=== PATIENT | female | born 1985 | race African-American/Black ===

== ENCOUNTER 2018-04-14 22:27 | Emergency (ER) | payer MEDICAID ==
[~2018-04-14] VITALS: Ht 165.1 cm; Wt 106.0 kg
[~2018-04-14 22:27] MED LIST: CIPRO500 MG OR; CIPRO500 MG PO; LORTAB5 PO; NAPROSYN500 MG PO; NO MEDS; PERCOCET 5/325M1 TAB OR; PRILOSEC OTC20 MG OR; ULTRAM50 M1 PO; ULTRAM50 MG OR; ZOFRAN4 M1 OR
[2018-04-14] MEDS ORDERED: SILVADENE1 % EX (23:01)
[2018-04-14] MEDS ORDERED: TRAMADOL HCL50 MG PO (23:01)
[2018-04-14] MEDS ORDERED: IBUPROFEN600 MG PO (23:01)
[2018-04-14 23:35] VITALS: BP 120/57
== END 2018-04-14 23:35 | disposition home or self-care (01) ==
LOC: ED 22:27
DX: T22.211A Burn of second degree of right forearm, initial encounter (principal); T23.171A Burn of first degree of right wrist, initial encounter; T31.0 Burns involving less than 10% of body surface; X12.XXXA Contact with other hot fluids, initial encounter; Y92.009 Unspecified place in unspecified non-institutional (private) residence as the place of occurrence of the external cause

== ENCOUNTER 2019-07-11 | Emergency (ER) | payer MEDICAID ==
[~2019-07-11] MED LIST changes: +IBUPROFEN600 MG PO; +SILVADENE1 % EX; +TRAMADOL HCL50 MG PO
[2019-07-12 00:44] LABS: HEMATOCRIT 37.5 % (37.0-47.0); HEMOGLOBIN 12.2 g/dl (12.0-16.0); IMMATURE GRANULOCYTES 0.1 % (0.0-5.0); MEAN CELL VOLUME 87.8 fL CALC (80.0-100.0); MEAN CORPUSCULAR HGB 28.6 pG CALC (26.0-32.0); MEAN CORPUSCULAR HGB CONC 32.5 g/dL CAL (32.0-36.0); NEUT# 3.6 thou/uL (2.00-7.15); RED BLOOD COUNT 4.27 mill/uL (4.20-5.60); RED CELL DISTRI WIDTH 12.7 % (11.5-15.5)
[2019-07-12 00:45] LABS: HCG SERUM/URINE (NEG/POS) NEGATIVE (NEGATIVE); URINE BILIRUBIN - DIPSTICK NEGATIVE (NEGATIVE); URINE BLOOD DIPSTICK NEGATIVE (NEGATIVE); URINE COLOR YELLOW; URINE GLUCOSE - DIPSTICK NEGATIVE (NEGATIVE); URINE KETONE NEGATIVE (NEGATIVE); URINE LEUK ESTERASE NEGATIVE (NEGATIVE); URINE NITRITE - DIPSTICK NEGATIVE (Negative); URINE PROTEIN - DIPSTICK NEGATIVE (NEG-TRACE); URINE SPECIFIC GRAVITY >=1.030; URINE UROBILINOGEN - DIPSTICK 0.2 E.U./dL (0.2)
[2019-07-12 00:46] LABS: BARBITURATES NEGATIVE (NEGATIVE); COCAINE NEGATIVE (NEGATIVE); METHADONE NEGATIVE (NEGATIVE); OXCYCODONE NEGATIVE (NEGATIVE); TETRAHYDROCANNABIONOL NEGATIVE (NEGATIVE); TRICYLIC ANTIDEPRESSANTS NEGATIVE (NEGATIVE)
[2019-07-12 01:03] LABS: ALBUMIN 4.1 g/dL (3.2-5.0); ALKALINE PHOSPHATASE 57 u/l (38-126); ANION GAP 14 (6-22 (CALC)); BILIRUBIN, TOTAL 0.3 mg/dL (0.0-1.4); BUN 10 mg/dL (7-17); BUN/CREATININE RATIO 14 (12-20 (CALC)); CARBON DIOXIDE 23 mmol/l (22-30); CHLORIDE 103 mmol/l (95-108); CREATININE 0.7 mg/dL (0.5-1.0); GFR > 60 ML/MIN (>=60 (CALC)); GFR FOR AFR.AMER. > 60 ML/MIN (>=60 (CALC)); POTASSIUM 3.6 mmol/l (3.5-5.1); SGOT/AST 19 u/l (14-36); SODIUM 137 mmol/l (137-146); TOTAL PROTEIN 7.3 g/dL (6.3-8.2)
[2019-07-12 01:15] LABS: MYOGLOBIN 11 ng/mL (0 - 62)
== END 2019-07-12 02:37 | disposition home or self-care (01) ==
PROVIDERS: Emergency Medicine
DX: R00.2 Palpitations (principal)

== ENCOUNTER 2020-01-01 01:11 | Emergency (ER) | payer MEDICAID, OTHER ==
[~2020-01-01] VITALS: Ht 165.1 cm; Wt 104.5 kg
[2020-01-01] MEDS ORDERED: MIRENA20 MCG/24 (01:28)
[2020-01-01] MEDS ORDERED: IBUPROFEN600 MG PO (03:31)
[2020-01-01 03:33] VITALS: BP 107/60
== END 2020-01-01 03:33 | disposition home or self-care (01) | DRG 552 ==
LOC: ED 01:11
DX: M54.2 Cervicalgia (principal); R52 Pain, unspecified; V09.00XA Pedestrian injured in nontraffic accident involving unspecified motor vehicles, initial encounter; Y92.481 Parking lot as the place of occurrence of the external cause

== ENCOUNTER 2020-03-23 17:17 | Emergency (ER) | payer MEDICAID ==
[~2020-03-23] VITALS: Ht 165.1 cm; Wt 100.0 kg
[~2020-03-23 17:17] MED LIST changes: +MIRENA20 MCG/24
[2020-03-23 18:51] LABS: HEMATOCRIT 42.2 % (37.0-47.0); HEMOGLOBIN 13.6 g/dl (12.0-16.0); IMMATURE GRANULOCYTES 0.2 % (0.0-5.0); MEAN CELL VOLUME 88.7 fL CALC (80.0-100.0); MEAN CORPUSCULAR HGB 28.6 pG CALC (26.0-32.0); MEAN CORPUSCULAR HGB CONC 32.2 g/dL CAL (32.0-36.0); NEUT# 2.79 thou/uL (2.00-7.15); RED BLOOD COUNT 4.76 mill/uL (4.20-5.60); RED CELL DISTRI WIDTH 12.9 % (11.5-15.5)
[2020-03-23 19:27] LABS: URINE BILIRUBIN - DIPSTICK NEGATIVE (NEGATIVE); URINE BLOOD DIPSTICK NEGATIVE (NEGATIVE); URINE COLOR YELLOW; URINE GLUCOSE - DIPSTICK NEGATIVE (NEGATIVE); URINE KETONE NEGATIVE (NEGATIVE); URINE LEUK ESTERASE NEGATIVE (NEGATIVE); URINE NITRITE - DIPSTICK NEGATIVE (Negative); URINE PH 6.5 (4.5-8.0); URINE PROTEIN - DIPSTICK NEGATIVE (NEG-TRACE); URINE SPECIFIC GRAVITY >=1.030; URINE UROBILINOGEN - DIPSTICK 0.2 E.U./dL (0.2)
[2020-03-23 19:46] LABS: ALBUMIN 4.1 g/dL (3.2-5.0); ALKALINE PHOSPHATASE 53 u/l (38-126); AMYLASE 49 u/l (30-110); ANION GAP 10 (6-22 (CALC)); BILIRUBIN, TOTAL 0.3 mg/dL (0.0-1.4); BUN 9 mg/dL (7-17); BUN/CREATININE RATIO 10 (12-20 (CALC)); CARBON DIOXIDE 27 mmol/l (22-30); CHLORIDE 105 mmol/l (95-108); CREATININE 0.9 mg/dL (0.5-1.0); GFR > 60 ML/MIN (>=60 (CALC)); GFR FOR AFR.AMER. > 60 ML/MIN (>=60 (CALC)); LIPASE 64 u/l (23-300); POTASSIUM 3.7 mmol/l (3.5-5.1); SGOT/AST 29 u/l (14-36); SODIUM 138 mmol/l (137-146); TOTAL PROTEIN 7.6 g/dL (6.3-8.2)
[2020-03-23 19:52] LABS: URINE BACTERIA FEW hpf; URINE RBC 0-2 RBC/hpf (0-5); URINE SQUAMOUS EPITHELIAL CELL MANY EPI/hpf (0-FEW); URINE WBC 0-2 WBC/hpf (0-5)
[2020-03-23] MEDS ORDERED: ZITHROMAX250 MG PO (21:17)
[2020-03-23] MEDS ORDERED: AUGMENTIN500TAB PO (21:17)
[2020-03-23] MEDS ORDERED: DEXAMETHASON6 MG PO (21:17)
[2020-03-23 23:10] VITALS: BP 108/80
== END 2020-03-23 23:12 | disposition home or self-care (01) ==
LOC: ED 17:17
DX: U07.1 COVID-19 (principal); J12.82 Pneumonia due to coronavirus disease 2019

== ENCOUNTER 2020-03-26 14:11 | Emergency (ER) | payer MEDICAID ==
[~2020-03-26] VITALS: Ht 165.1 cm; Wt 95.0 kg
[~2020-03-26 14:11] MED LIST changes: +AUGMENTIN500TAB PO; +DEXAMETHASON6 MG PO; +ZITHROMAX250 MG PO
[2020-03-26 17:04] LABS: HEMATOCRIT 40.1 % (37.0-47.0); HEMOGLOBIN 12.9 g/dl (12.0-16.0); IMMATURE GRANULOCYTES 0.4 % (0.0-5.0); MEAN CELL VOLUME 87.9 fL CALC (80.0-100.0); MEAN CORPUSCULAR HGB 28.3 pG CALC (26.0-32.0); MEAN CORPUSCULAR HGB CONC 32.2 g/dL CAL (32.0-36.0); NEUT# 3.85 thou/uL (2.00-7.15); RED BLOOD COUNT 4.56 mill/uL (4.20-5.60); RED CELL DISTRI WIDTH 12.5 % (11.5-15.5)
[2020-03-26 17:11] LABS: URINE BILIRUBIN - DIPSTICK NEGATIVE (NEGATIVE); URINE BLOOD DIPSTICK NEGATIVE (NEGATIVE); URINE COLOR YELLOW; URINE GLUCOSE - DIPSTICK NEGATIVE (NEGATIVE); URINE KETONE NEGATIVE (NEGATIVE); URINE LEUK ESTERASE NEGATIVE (NEGATIVE); URINE NITRITE - DIPSTICK NEGATIVE (Negative); URINE PH 6.5 (4.5-8.0); URINE PROTEIN - DIPSTICK TRACE mg/dL (NEG-TRACE); URINE UROBILINOGEN - DIPSTICK 0.2 E.U./dL (0.2)
[2020-03-26 17:15] LABS: ALBUMIN 4.1 g/dL (3.2-5.0); ALKALINE PHOSPHATASE 51 u/l (38-126); ANION GAP 14 (6-22 (CALC)); BUN 8 mg/dL (7-17); BUN/CREATININE RATIO 10 (12-20 (CALC)); CARBON DIOXIDE 25 mmol/l (22-30); CHLORIDE 100 mmol/l (95-108); CREATININE 0.8 mg/dL (0.5-1.0); GFR > 60 ML/MIN (>=60 (CALC)); GFR FOR AFR.AMER. > 60 ML/MIN (>=60 (CALC)); LIPASE 85 u/l (23-300); POTASSIUM 3.9 mmol/l (3.5-5.1); SGOT/AST 32 u/l (14-36); SODIUM 135 mmol/l (137-146); TOTAL PROTEIN 7.4 g/dL (6.3-8.2)
[2020-03-26 17:16] LABS: BILIRUBIN, TOTAL 0.5 mg/dL (0.0-1.4)
[2020-03-26 18:15] VITALS: BP 116/66
[2020-03-31] MEDS ORDERED: ZOFRAN4 MG/TAB PO (10:59)
[2020-03-31] MEDS ORDERED: XANAX0.25 MG PO (10:59)
== END 2020-03-26 18:13 | disposition home or self-care (01) ==
LOC: ED 14:11
PROVIDERS: Family Medicine
DX: U07.1 COVID-19 (principal); J12.82 Pneumonia due to coronavirus disease 2019

== ENCOUNTER 2021-05-15 01:00 | Emergency (ER) | payer MEDICAID ==
[2021-05-15] VITALS (8 sets, daily range): BP systolic 104–130; BP diastolic 76–102
[~2021-05-15] VITALS: Ht 162.6 cm; Wt 107.0 kg
[~2021-05-15 01:00] MED LIST changes: +XANAX0.25 MG PO; +ZOFRAN4 MG/TAB PO
[2021-05-15 01:40] LABS: HEMATOCRIT 38.5 % (37.0-47.0); HEMOGLOBIN 12.2 g/dl (12.0-16.0); IMMATURE GRANULOCYTES 0.3 % (0.0-5.0); MEAN CELL VOLUME 91.9 fL CALC (80.0-100.0); MEAN CORPUSCULAR HGB 29.1 pG CALC (26.0-32.0); MEAN CORPUSCULAR HGB CONC 31.7 g/dL CAL (32.0-36.0); NEUT# 3.39 thou/uL (2.00-7.15); RED BLOOD COUNT 4.19 mill/uL (4.20-5.60); RED CELL DISTRI WIDTH 12.6 % (11.5-15.5)
[2021-05-15 01:42] LABS: URINE BILIRUBIN - DIPSTICK NEGATIVE (NEGATIVE); URINE BLOOD DIPSTICK NEGATIVE (NEGATIVE); URINE COLOR YELLOW; URINE GLUCOSE - DIPSTICK NEGATIVE (NEGATIVE); URINE KETONE NEGATIVE (NEGATIVE); URINE LEUK ESTERASE NEGATIVE (NEGATIVE); URINE PH 6.5 (4.5-8.0); URINE PROTEIN - DIPSTICK TRACE mg/dL (NEG-TRACE); URINE SPECIFIC GRAVITY 1.025; URINE UROBILINOGEN - DIPSTICK 0.2 E.U./dL (0.2)
[2021-05-15 01:45] LABS: URINE NITRITE - DIPSTICK NEGATIVE (Negative)
[2021-05-15 02:03] LABS: ALBUMIN 4.2 g/dL (3.2-5.0); ALKALINE PHOSPHATASE 80 u/l (38-126); BUN 13 mg/dL (7-17); BUN/CREATININE RATIO 17 (12-20 (CALC)); CARBON DIOXIDE 25 mmol/l (22-30); CHLORIDE 103 mmol/l (95-108); CREATININE 0.8 mg/dL (0.5-1.0); GFR > 60 ML/MIN (>=60 (CALC)); GFR FOR AFR.AMER. > 60 ML/MIN (>=60 (CALC)); SGOT/AST 20 u/l (14-36); SODIUM 139 mmol/l (137-146); TOTAL PROTEIN 7.9 g/dL (6.3-8.2)
[2021-05-15 02:07] LABS: ANION GAP 15 (6-22 (CALC)); BILIRUBIN, TOTAL 0.2 mg/dL (0.0-1.4); POTASSIUM 3.5 mmol/l (3.5-5.1)
[2021-05-15] MEDS ORDERED: VISTARIL 50MG C50 M1 PO (03:30)
== END 2021-05-15 04:05 | disposition home or self-care (01) ==
LOC: ED 01:00
PROVIDERS: Emergency Medicine
DX: R00.2 Palpitations (principal); F41.9 Anxiety disorder, unspecified
CPT/HCPCS: J2060

== ENCOUNTER 2021-10-04 04:14 | Emergency (ER) | payer MEDICAID ==
[~2021-10-04] VITALS: Ht 162.6 cm; Wt 107.0 kg
[~2021-10-04 04:14] MED LIST changes: +VISTARIL 50MG C50 M1 PO
[2021-10-04 04:56] LABS: HEMATOCRIT 38.8 % (37.0-47.0); HEMOGLOBIN 12.4 g/dl (12.0-16.0); IMMATURE GRANULOCYTES 0.5 % (0.0-5.0); MEAN CELL VOLUME 91.3 fL CALC (80.0-100.0); MEAN CORPUSCULAR HGB 29.2 pG CALC (26.0-32.0); NEUT# 4.17 thou/uL (2.00-7.15); RED BLOOD COUNT 4.25 mill/uL (4.20-5.60); RED CELL DISTRI WIDTH 12.4 % (11.5-15.5)
[2021-10-04 05:06] LABS: ALKALINE PHOSPHATASE 67 u/l (38-126); ANION GAP 9 (6-22 (CALC)); BUN 11 mg/dL (7-17); BUN/CREATININE RATIO 12 (12-20 (CALC)); CARBON DIOXIDE 30 mmol/l (22-30); CHLORIDE 102 mmol/l (95-108); CREATININE 0.9 mg/dL (0.5-1.0); GFR FOR AFR.AMER. > 60 ML/MIN (>=60 (CALC)); GFR OTHER RACES > 60 ML/MIN (>=60 (CALC)); POTASSIUM 3.7 mmol/l (3.5-5.1); SGOT/AST 22 u/l (14-36); SODIUM 137 mmol/l (137-146); TOTAL PROTEIN 7.5 g/dL (6.3-8.2)
[2021-10-04 05:07] LABS: BILIRUBIN, TOTAL 0.4 mg/dL (0.0-1.4)
[2021-10-04 05:18] LABS: MYOGLOBIN 16 ng/mL (0 - 62)
[2021-10-04] MEDS ORDERED: NAPROXEN500 MG PO (05:33)
[2021-10-04 05:37] VITALS: BP 139/86
== END 2021-10-04 06:06 | disposition home or self-care (01) ==
LOC: ED 04:14
PROVIDERS: Emergency Medicine
DX: R07.89 Other chest pain (principal); F41.9 Anxiety disorder, unspecified; Z20.822 Contact with and (suspected) exposure to COVID-19

== ENCOUNTER 2021-12-05 01:11 | Emergency (ER) | payer MEDICAID ==
[2021-12-05] VITALS (11 sets, daily range): BP systolic 87–128; BP diastolic 56–103
[~2021-12-05] VITALS: Ht 162.6 cm; Wt 114.0 kg
[~2021-12-05 01:11] MED LIST changes: +NAPROXEN500 MG PO
[2021-12-05 01:50] LABS: HEMATOCRIT 38.9 % (37.0-47.0); HEMOGLOBIN 12.8 g/dl (12.0-16.0); IMMATURE GRANULOCYTES 0.5 % (0.0-5.0); MEAN CELL VOLUME 87.6 fL CALC (80.0-100.0); MEAN CORPUSCULAR HGB 28.8 pG CALC (26.0-32.0); MEAN CORPUSCULAR HGB CONC 32.9 g/dL CAL (32.0-36.0); NEUT# 4.49 thou/uL (2.00-7.15); RED BLOOD COUNT 4.44 mill/uL (4.20-5.60); RED CELL DISTRI WIDTH 12.5 % (11.5-15.5)
[2021-12-05 01:51] LABS: URINE BILIRUBIN - DIPSTICK NEGATIVE (NEGATIVE); URINE BLOOD DIPSTICK NEGATIVE (NEGATIVE); URINE COLOR YELLOW; URINE GLUCOSE - DIPSTICK NEGATIVE (NEGATIVE); URINE KETONE NEGATIVE (NEGATIVE); URINE LEUK ESTERASE NEGATIVE (NEGATIVE); URINE PROTEIN - DIPSTICK TRACE mg/dL (NEG-TRACE); URINE SPECIFIC GRAVITY >=1.030; URINE UROBILINOGEN - DIPSTICK 0.2 E.U./dL (0.2)
[2021-12-05 02:00] LABS: URINE NITRITE - DIPSTICK NEGATIVE (Negative)
[2021-12-05 02:10] LABS: ALBUMIN 4.4 g/dL (3.2-5.0); ALKALINE PHOSPHATASE 78 u/l (38-126); ANION GAP 14 (6-22 (CALC)); BILIRUBIN, TOTAL 0.5 mg/dL (0.0-1.4); BUN 12 mg/dL (7-17); BUN/CREATININE RATIO 14 (12-20 (CALC)); CARBON DIOXIDE 24 mmol/l (22-30); CHLORIDE 103 mmol/l (95-108); CREATININE 0.8 mg/dL (0.5-1.0); ETHYL ALCOHOL 0 mg/dl (0-30); GFR FOR AFR.AMER. > 60 ML/MIN (>=60 (CALC)); GFR OTHER RACES > 60 ML/MIN (>=60 (CALC)); LIPASE 81 u/l (23-300); POTASSIUM 3.9 mmol/l (3.5-5.1); SGOT/AST 30 u/l (14-36); SODIUM 138 mmol/l (137-146); TOTAL PROTEIN 8.3 g/dL (6.3-8.2)
[2021-12-05] MEDS ORDERED: PROMETHAZINE HY25 M1 PO (02:49)
== END 2021-12-05 03:00 | disposition home or self-care (01) ==
LOC: ED 01:11
PROVIDERS: Family Medicine
DX: K52.9 Noninfective gastroenteritis and colitis, unspecified (principal); F41.9 Anxiety disorder, unspecified

== ENCOUNTER 2022-02-24 03:29 | Emergency (ER) | payer MEDICAID ==
[~2022-02-24] VITALS: Ht 162.6 cm; Wt 104.5 kg
[~2022-02-24 03:29] MED LIST changes: +PROMETHAZINE HY25 M1 PO
[2022-02-24 05:35] LABS: HCG SERUM/URINE (NEG/POS) NEGATIVE (NEGATIVE)
[2022-02-24 05:38] LABS: URINE BILIRUBIN - DIPSTICK NEGATIVE (NEGATIVE); URINE BLOOD DIPSTICK NEGATIVE (NEGATIVE); URINE COLOR YELLOW; URINE GLUCOSE - DIPSTICK NEGATIVE (NEGATIVE); URINE KETONE TRACE mg/dL (NEGATIVE); URINE LEUK ESTERASE NEGATIVE (NEGATIVE); URINE PROTEIN - DIPSTICK NEGATIVE (NEG-TRACE); URINE SPECIFIC GRAVITY 1.025; URINE UROBILINOGEN - DIPSTICK 0.2 E.U./dL (0.2)
[2022-02-24 05:39] LABS: URINE NITRITE - DIPSTICK NEGATIVE (Negative)
[2022-02-24 05:42] LABS: HEMOGLOBIN 12.7 g/dl (12.0-16.0); IMMATURE GRANULOCYTES 0.4 % (0.0-5.0); MEAN CELL VOLUME 88.8 fL CALC (80.0-100.0); MEAN CORPUSCULAR HGB 29.7 pG CALC (26.0-32.0); MEAN CORPUSCULAR HGB CONC 33.4 g/dL CAL (32.0-36.0); NEUT# 2.82 thou/uL (2.00-7.15); RED BLOOD COUNT 4.28 mill/uL (4.20-5.60); RED CELL DISTRI WIDTH 12.3 % (11.5-15.5)
[2022-02-24 05:44] LABS: ALBUMIN 4.3 g/dL (3.2-5.0); ALKALINE PHOSPHATASE 61 u/l (38-126); AMYLASE 72 u/l (30-110); ANION GAP 15 (6-22 (CALC)); BILIRUBIN, TOTAL 0.3 mg/dL (0.0-1.4); BUN 11 mg/dL (7-17); BUN/CREATININE RATIO 14 (12-20 (CALC)); CARBON DIOXIDE 27 mmol/l (22-30); CHLORIDE 104 mmol/l (95-108); CREATININE 0.8 mg/dL (0.5-1.0); GFR FOR AFR.AMER. > 60 ML/MIN (>=60 (CALC)); GFR OTHER RACES > 60 ML/MIN (>=60 (CALC)); LIPASE 76 u/l (23-300); POTASSIUM 3.3 mmol/l (3.5-5.1); SGOT/AST 26 u/l (14-36); SODIUM 143 mmol/l (137-146); TOTAL PROTEIN 7.6 g/dL (6.3-8.2)
[2022-02-24] MEDS ORDERED: NAPROXEN500 MG PO (05:58)
[2022-02-24 06:10] VITALS: BP 136/88
== END 2022-02-24 06:24 | disposition home or self-care (01) ==
LOC: ED 04:10
PROVIDERS: Emergency Medicine
DX: R07.89 Other chest pain (principal); F41.9 Anxiety disorder, unspecified

== ENCOUNTER 2022-03-05 18:14 | Emergency (ER) | payer MEDICAID ==
[~2022-03-05] VITALS: Ht 162.6 cm; Wt 106.4 kg
[2022-03-05] VITALS (8 sets, daily range): BP systolic 104–128; BP diastolic 64–92
[2022-03-05 19:40] LABS: URINE BLOOD DIPSTICK NEGATIVE (NEGATIVE); URINE COLOR YELLOW; URINE GLUCOSE - DIPSTICK NEGATIVE (NEGATIVE); URINE KETONE >=80 mg/dL (NEGATIVE); URINE LEUK ESTERASE NEGATIVE (NEGATIVE); URINE PH 6.5 (4.5-8.0); URINE PROTEIN - DIPSTICK NEGATIVE (NEG-TRACE); URINE SPECIFIC GRAVITY 1.025; URINE UROBILINOGEN - DIPSTICK 0.2 E.U./dL (0.2)
[2022-03-05 19:41] LABS: URINE BILIRUBIN - DIPSTICK SMALL (NEGATIVE); URINE NITRITE - DIPSTICK NEGATIVE (Negative)
[2022-03-05] MEDS ORDERED: FIORICET PO (22:23)
== END 2022-03-05 22:30 | disposition home or self-care (01) ==
LOC: ED 18:14
PROVIDERS: Emergency Medicine
DX: G43.909 Migraine, unspecified, not intractable, without status migrainosus (principal); F41.9 Anxiety disorder, unspecified

== ENCOUNTER 2023-09-23 03:26 | Emergency (ER) | payer MEDICAID ==
[~2023-09-23] VITALS: Ht 165.1 cm; Wt 112.0 kg
[~2023-09-23 03:26] MED LIST changes: +FIORICET PO
[2023-09-23 03:42] VITALS: BP 138/77
[2023-09-23] MEDS ORDERED: FAMOTIDINE 10MG/ML 2ML SDV IV ONE (04:20)
[2023-09-23] MEDS ORDERED: ACETAMINOPHEN 500 MG TAB PO ONE (04:20)
[2023-09-23] MEDS ORDERED: PROMETHAZINE HCL 25 MG/ML AMP IM ONE (04:20)
[2023-09-23] MEDS ORDERED: ASPIRIN 81 MG/TAB PO ONE (04:20)
[2023-09-23 04:28] LABS: URINE BLOOD DIPSTICK Negative (NEGATIVE); URINE GLUCOSE - DIPSTICK Negative (NEGATIVE); URINE KETONE 80 mg/dL (NEGATIVE); URINE LEUK ESTERASE Negative (NEGATIVE); URINE NITRITE - DIPSTICK Negative (Negative); URINE PH 6.5 (4.5-8.0); URINE PROTEIN - DIPSTICK Negative (NEG-TRACE); URINE SPECIFIC GRAVITY >=1.030; URINE UROBILINOGEN - DIPSTICK 0.2 E.U./dL (0.2)
[2023-09-23 04:32] LABS: URINE COLOR Yellow
[2023-09-23 05:07] LABS: BASO% 0.4 % (0-3); EOS% 0.4 % (0-8); HEMATOCRIT 36.4 % (37.0-47.0); HEMOGLOBIN 11.8 g/dl (12.0-16.0); IMMATURE GRANULOCYTES 0.2 % (0.0-5.0); MEAN CELL VOLUME 89.4 fL CALC (80.0-100.0); MEAN CORPUSCULAR HGB CONC 32.4 g/dL CAL (32.0-36.0); MONO% 6.9 % (2-13); NEUT# 6.41 thou/uL (2.00-7.15); NEUT% 66.1 % (42-76); RED BLOOD COUNT 4.07 mill/uL (4.20-5.60); RED CELL DISTRI WIDTH 12.4 % (11.5-15.5)
[2023-09-23 05:14] LABS: ALBUMIN 4.2 g/dL (3.2-5.0); ALKALINE PHOSPHATASE 49 u/l (38-126); ANION GAP 10 (6-22 (CALC)); BUN 9 mg/dL (7-17); BUN/CREATININE RATIO 12 (12-20 (CALC)); CARBON DIOXIDE 24 mmol/l (22-30); CHLORIDE 106 mmol/l (95-108); CPK 55 u/l (30-135); CREATININE 0.7 mg/dL (0.5-1.0); ESTIMATED GFR 115 ML/MIN (>=90 (CALC)); ETHYL ALCOHOL 0 mg/dl (0-30); LIPASE 33 u/l (23-300); POTASSIUM 3.6 mmol/l (3.5-5.1); SGOT/AST 24 u/l (14-36); SODIUM 137 mmol/l (137-146)
[2023-09-23 05:16] LABS: INTERNATIONAL NORMALIZED RATIO 1.1 RATIO (0.7-1.3)
[2023-09-23 05:21] LABS: BILIRUBIN, TOTAL 0.7 mg/dL (0.02-1.3)
[2023-09-23 05:22] LABS: D-DIMER 0.26 mg/L (0.19-0.60); PROTHROMBIN TIME 10.8 SECONDS (9.0-12.5)
[2023-09-23 05:44] LABS: TSH, 3RD GENERATION 1.19 uIU/mL (0.47 - 4.68)
[2023-09-23 07:02] VITALS: BP 138/77
== END 2023-09-23 07:05 | disposition home or self-care (01) ==
LOC: ED 03:26
PROVIDERS: Internal Medicine
DX: R07.9 Chest pain, unspecified (principal); R10.9 Unspecified abdominal pain; F41.9 Anxiety disorder, unspecified; Z20.822 Contact with and (suspected) exposure to COVID-19

== ENCOUNTER 2023-09-25 13:59 | Emergency (ER) | payer MEDICAID ==
[~2023-09-25] VITALS: Ht 165.1 cm; Wt 103.5 kg
[2023-09-25] VITALS (8 sets, daily range): BP systolic 95–129; BP diastolic 58–86
[2023-09-25] MEDS ORDERED: MORPHINE SULFATE 4 MG/ML VIAL IV ONE (14:30)
[2023-09-25] MEDS ORDERED: Pantoprazole Sodium 40 MG VIAL (Protonix) IV ONE (14:30)
[2023-09-25] MEDS ORDERED: ONDANSETRON HCl 4 MG/2 ML SDV IV ONE (14:30)
[2023-09-25 14:57] LABS: BASO% 0.5 % (0-3); EOS% 0.5 % (0-8); HEMATOCRIT 37.9 % (37.0-47.0); HEMOGLOBIN 12.1 g/dl (12.0-16.0); IMMATURE GRANULOCYTES 0.2 % (0.0-5.0); LYMPH% 31.8 % (15-41); MEAN CELL VOLUME 89.2 fL CALC (80.0-100.0); MEAN CORPUSCULAR HGB 28.5 pG CALC (26.0-32.0); MEAN CORPUSCULAR HGB CONC 31.9 g/dL CAL (32.0-36.0); MONO% 6.8 % (2-13); NEUT# 3.34 thou/uL (2.00-7.15); NEUT% 60.2 % (42-76); RED BLOOD COUNT 4.25 mill/uL (4.20-5.60); RED CELL DISTRI WIDTH 12.4 % (11.5-15.5)
[2023-09-25 15:16] LABS: ALBUMIN 4.2 g/dL (3.2-5.0); ALKALINE PHOSPHATASE 50 u/l (38-126); ANION GAP 12 (6-22 (CALC)); BUN 9 mg/dL (7-17); BUN/CREATININE RATIO 11 (12-20 (CALC)); CARBON DIOXIDE 22 mmol/l (22-30); CHLORIDE 107 mmol/l (95-108); CREATININE 0.8 mg/dL (0.5-1.0); ESTIMATED GFR 98 ML/MIN (>=90 (CALC)); POTASSIUM 3.5 mmol/l (3.5-5.1); SGOT/AST 23 u/l (14-36); SODIUM 138 mmol/l (137-146); TOTAL PROTEIN 8.1 g/dL (6.3-8.2)
[2023-09-25] MEDS ORDERED: DICYCLOMINE HCL 20 MG/2 ML VIAL IM ONE (18:50)
[2023-09-25] MEDS ORDERED: METOPROLOL TARTRATE 5 MG/5 ML VIAL IV ONE (18:50)
[2023-09-25 18:58] LABS: URINE BLOOD DIPSTICK Trace-intact (NEGATIVE); URINE GLUCOSE - DIPSTICK Negative (NEGATIVE); URINE KETONE >=160 mg/dL (NEGATIVE); URINE LEUK ESTERASE Negative (NEGATIVE); URINE NITRITE - DIPSTICK Negative (Negative); URINE PROTEIN - DIPSTICK Negative (NEG-TRACE); URINE SPECIFIC GRAVITY 1.015; URINE UROBILINOGEN - DIPSTICK 0.2 E.U./dL (0.2)
[2023-09-25 18:59] LABS: URINE COLOR Yellow
[2023-09-25] MEDS ORDERED: ONDANSETRON4 MG PO (19:08)
== END 2023-09-25 19:40 | disposition home or self-care (01) ==
LOC: ED 13:59
PROVIDERS: Nurse Practitioner Family
DX: R10.12 Left upper quadrant pain (principal); R10.32 Left lower quadrant pain; R11.10 Vomiting, unspecified; F41.9 Anxiety disorder, unspecified; Z20.822 Contact with and (suspected) exposure to COVID-19
CPT/HCPCS: J2470; Q9967

== ENCOUNTER 2024-02-16 16:03 | Emergency (ER) | payer MEDICAID ==
[~2024-02-16] VITALS: Ht 165.1 cm; Wt 99.0 kg
[~2024-02-16 16:03] MED LIST changes: +ONDANSETRON4 MG PO
[2024-02-16 17:45] VITALS: BP 114/73
[2024-02-16] MEDS ORDERED: ISOVUE-300 (Iopamidol) 100 ML SDV IV ONE ×4 (17:50→18:00)
[2024-02-16] MEDS ORDERED: SODIUM CHLORIDE 0.9% 1,000 ML IV ONE (17:55)
[2024-02-16] MEDS ORDERED: KETOROLAC TROMETHAMINE 30 MG/ML SDV IV ONE (17:55)
[2024-02-16] MEDS ORDERED: METOCLOPRAMIDE HCL 10 MG/2 ML SDV IV ONE (17:55)
[2024-02-16] MEDS ORDERED: DiphenhydrAMINE HCL 50 MG/ML SDV IV ONE (17:55)
[2024-02-16 18:12] VITALS: BP 126/83
[2024-02-16 18:31] LABS: BASO% 0.6 % (0-3); EOS% 0.6 % (0-8); HEMATOCRIT 41.9 % (37.0-47.0); HEMOGLOBIN 13.6 g/dl (12.0-16.0); IMMATURE GRANULOCYTES 0.1 % (0.0-5.0); LYMPH% 31.3 % (15-41); MEAN CORPUSCULAR HGB 28.9 pG CALC (26.0-32.0); MEAN CORPUSCULAR HGB CONC 32.5 g/dL CAL (32.0-36.0); MONO% 5.9 % (2-13); NEUT# 4.24 thou/uL (2.00-7.15); NEUT% 61.5 % (42-76); RED BLOOD COUNT 4.71 mill/uL (4.20-5.60); RED CELL DISTRI WIDTH 12.6 % (11.5-15.5)
[2024-02-16 18:43] LABS: ALBUMIN 4.9 g/dL (3.2-5.0); BILIRUBIN, TOTAL 0.8 mg/dL (0.02-1.3); CREATININE 0.7 mg/dL (0.5-1.0); TOTAL PROTEIN 8.8 g/dL (6.3-8.2)
[2024-02-16 19:01] VITALS: BP 112/77
[2024-02-16 19:19] LABS: URINE BILIRUBIN - DIPSTICK Negative (NEGATIVE); URINE BLOOD DIPSTICK Negative (NEGATIVE); URINE GLUCOSE - DIPSTICK Negative (NEGATIVE); URINE KETONE Negative (NEGATIVE); URINE LEUK ESTERASE Negative (NEGATIVE); URINE NITRITE - DIPSTICK Negative (Negative); URINE PH 6.5 (4.5-8.0); URINE PROTEIN - DIPSTICK Negative (NEG-TRACE); URINE UROBILINOGEN - DIPSTICK 0.2 E.U./dL (0.2)
[2024-02-16 19:20] LABS: URINE COLOR Straw
[2024-02-16 19:31] VITALS: BP 80/65
[2024-02-16 20:14] VITALS: BP 108/62
[2024-02-16 22:20] VITALS: BP 108/62
== END 2024-02-16 22:20 | disposition home or self-care (01) ==
LOC: ED 16:03
PROVIDERS: Nurse Practitioner
DX: R51.9 Headache, unspecified (principal); F41.9 Anxiety disorder, unspecified
CPT/HCPCS: Q9967

== ENCOUNTER 2024-04-07 10:45 | Emergency (ER) | payer MEDICAID ==
[~2024-04-07] VITALS: Ht 165.1 cm; Wt 104.0 kg
[2024-04-07 11:01] VITALS: BP 139/90
[2024-04-07] MEDS ORDERED: IBUPROFEN 200 MG/TAB PO ONE (11:25)
[2024-04-07] MEDS ORDERED: ACETAMINOPHEN 500 MG TAB PO ONE (11:25)
[2024-04-07 11:31] VITALS: BP 117/78
[2024-04-07] MEDS ORDERED: TAM75CAP PO (11:51)
[2024-04-07 12:01] VITALS: BP 117/78
== END 2024-04-07 12:06 | disposition home or self-care (01) ==
LOC: ED 10:45
DX: J11.1 Influenza due to unidentified influenza virus with other respiratory manifestations (principal); Z20.822 Contact with and (suspected) exposure to COVID-19